=== PATIENT | female | born 1965 | race Caucasian/White ===

== ENCOUNTER 2025-03-21 17:41 | Inpatient (IN) | payer BC, MEDICARE, MEDICAID, SELFPAY ==
--- NOTE | ~2025-03-21 | US_ITS ---
CLINICAL HISTORY: TIANNA US Renal Comparison: None provided Findings: The right kidney is 10.8 cm in length. The left kidney is 8.2 cm in length. Limited visualization of the left kidney due to overlying bowel gas. No collecting system dilatation of either kidney. Normal color Doppler. Bladder is not visualized. IMPRESSION: 1. Normal kidneys. This document has been electronically signed by: Karan Harrington DO on 03/24/2025 11:09:48
[2025-03-21 19:18] VITALS: BMI 38.4
[2025-03-21 19:19] VITALS: BP 145/68; PULSE 70; RESP 17; TEMP 36.4; O2SAT 97
--- NOTE | 2025-03-21 19:21 | PC.NURSE ---
Patient arrived on the unit 1824 on a CV. Patient's vitals and skin check completed (Noted to have scattered bruises to her body and necroptosis to her right lower leg). She was oriented to the unit, given food to eat. Visible out in the milieu.
[2025-03-21 20:40] VITALS: BP 109/51; PULSE 71; RESP 18; TEMP 36.4; O2SAT 95
[2025-03-21 21:32] LABS: Glucose, Whole Blood 463 mg/dL (60-115)
--- NOTE | 2025-03-22 06:11 | PC.ADMIT ---
Pt is a 59 year old female admitted to the unit at 1825 after being referred from [facility]. Legal status: CV. Pt has a history of bipolar d/o, anxiety d/o and borderline personality disorder.? Substance use: per eval, pt rarely uses alcohol. Denies other substance use. Medical hx: Pt has several medical issues, see record.? Precipitant: Pt intentionally overdosed on her insulin after having an argument with her daughter. Pt otf up 4 different vials of insulin aspart into one syringe, which she then injected into her abdomen. Of note, pt generally uses an insulin pump. Upon arrival to the ED pt was hypoglycemic and started on a D10 drip, as well as received multiple D50 boluses. Pt reported feeling very depressed and wanting to .? Upon arrival to the unit pt was a&o x4, pleasant and cooperative with changeover process. She presented with a depressed mood and congruent affect. Denied SI/HI/AH/VH, thought process logical and organized with no evidence of perceptual disturbance. Pt did not wish to participate in admission process at this time as she wanted to go to bed. Per eval, pt denied sleep or appetite disturbance. She reported being compliant with her medications. Skin check was unremarkable. Pt placed on 15 min safety checks.?
[2025-03-22 08:00] VITALS: BP 147/65; PULSE 72; RESP 18; TEMP 36.1; O2SAT 95
[2025-03-22 08:04] LABS: Glucose, Whole Blood 489 mg/dL (60-115)
[2025-03-22 08:28] VITALS: BP 147/65
[2025-03-22 08:29] VITALS: BP 147/65
[2025-03-22 08:30] VITALS: BP 147/65; PULSE 72
[2025-03-22] MEDS: buPROPion HCl XL 300 MG TAB.ER.24H PO (08:30)
[2025-03-22] MEDS: Insulin Glargine,Hum.rec.anlog 100 UNIT/ML 10 ML VIAL 20 UNIT SUBCUT (08:33)
--- NOTE | 2025-03-22 09:19 | P.CONHOSP_ITS ---
History of Present Illness Data of Consult Service Date: 03/22/25 Primary Care Provider: Ruth Anders MD HPI 59 year old women with hx of HLD, DM, hypothyroidism, CAD admittied to adult [facility] for Depression. Patient was transferred from an outside facility. She was noted to have a mildly elevated potassium and Creatitine with unknown baseline. At this time her labs are WNL and vital signs are stable. She has no acute medical complaints. Review of Systems 2 Review of Systems: Denies any recent fever chills or decrease in appetite respiratory denies any shortness of breath or cough cardiovascular denied chest pain gastrointestinal denies any dysphagia abdominal pain nausea vomiting or diarrhea genitourinary denies any dysuria frequency or hematuria musculoskeletal denies any joint pain or swelling neuropsych denies any weakness or seizures all other systems reviewed are negative [facility] Medical History (Updated 03/22/25 @ 09:44 by Collins James MD) Rotator cuff arthropathy of right shoulder Vitamin D deficiency Retinopathy due to secondary diabetes mellitus, without macular edema, with mild nonproliferative retinopathy Chronic kidney disease, stage 3a Spinal stenosis Presence of stent in anterior descending branch of left coronary artery Parkinson disease Obstructive sleep apnea Irritable bowel syndrome Hypothyroid HTN (hypertension) Heart murmur Graves' disease GERD (gastroesophageal reflux disease) Gastroparesis due to DM Fibromyalgia, primary Insulin dependent type 1 diabetes mellitus Necrobiosis lipoidica diabeticorum Coronary artery disease Obesity Cataracts, bilateral Surgical History (Updated 03/22/25 @ 04:06 by Jenny Smith RN) History of carpal tunnel surgery Hx of tubal ligation Hx of cholecystectomy Social History Household Members: Children Household Members Other:: lives with son Housing: Unknown / Unable to assess Do you presently have visiting nurse or other home services: No Patient Tobacco Use Status: Former Tobacco user Tobacco use type: Cigarette Years Smoked: 27 Smoked in Last 30 Days: No e-Cigarette/Vaping Use: Never Used Patient Interested in Nicotine Replacement: No (n/a) Patient Given Instructions on How to Stop Smoking: No (n/a) Second Hand Smoke Exposure: No Do you feel safe in your current relationship?: No Current Relationship Spiritual Healthcare Practices: unknown at this time [employer] Healthcare Practices: unknown at this time Cultural Healthcare Practices: unknown at this time Advance Directives: No Advance Directives Information Provided: No Recently lost weight without trying: No Nutrition Risks: No Nutritional Risk Patient : No : No Poor oral hygiene: No Meds Allergies Allergy/AdvReac Type Severity Reaction Status Date / Time aripiprazole Allergy Unknown Verified 03/21/25 18:15 bacitracin Allergy Hives Verified 03/21/25 18:15 citalopram Allergy Unknown Verified 03/21/25 18:15 codeine Allergy Itching Verified 03/21/25 18:15 duloxetine Allergy Itching Verified 03/21/25 18:15 lithium Allergy Shakiness Verified 03/21/25 18:15 morphine Allergy Itching Verified 03/21/25 18:15 naltrexone Allergy Confusion Verified 03/21/25 18:15 neomycin Allergy Rash Verified 03/21/25 18:15 oxycodone (From Percocet) Allergy Itching Verified 03/21/25 18:15 perphenazine Allergy Unknown Verified 03/21/25 18:15 polymyxin B Allergy Hives Verified 03/21/25 18:15 quetiapine Allergy Unknown Verified 03/21/25 18:15 risperidone Allergy Unknown Verified 03/21/25 18:15 venlafaxine Allergy Shakiness Verified 03/21/25 18:15 Active Medications: Current Medications Acetaminophen (Acetaminophen 325 Mg Tablet) 650 mg PO Q6H PRN PRN Reason: Pain (Pain Scale 1-10) Last Admin: 03/21/25 21:36 Dose: 650 mg Al Hydroxide/Mg Hydroxide (Magnesium Hydrox/Alum Hydrox 30 Ml Oral.Susp) 30 ml PO Q6H PRN PRN Reason: Heartburn/Nausea Atorvastatin Calcium (Atorvastatin Calcium 80 Mg Tablet) 80 mg PO BEDTIME [facility] Last Admin: 03/21/25 21:32 Dose: 80 mg Bupropion HCl (Bupropion Hcl Xl 300 Mg Tab.Er.24h) 300 mg PO DAILY [facility] Last Admin: 03/22/25 08:30 Dose: 300 mg Carvedilol (Carvedilol 12.5 Mg Tablet) 12.5 mg PO BIDWM [facility]; Protocol Last Admin: 03/22/25 08:30 Dose: 12.5 mg Dextrose (Dextrose 50 % 25 Gm/50 Ml Syringe) 25 gm IVPUSH Q15M PRN; Protocol PRN Reason: per Hypoglycemia Standing Ord. Diazepam (Diazepam 5 Mg Tablet) 5 mg PO DAILY@1800 PRN PRN Reason: mod to severe Anxiety Escitalopram Oxalate (Escitalopram Oxalate 5 Mg Tablet) 15 mg PO DAILY [facility] Last Admin: 03/22/25 08:30 Dose: 15 mg Furosemide (Furosemide 40 Mg Tablet) 40 mg PO BID [facility]; Protocol Last Admin: 03/22/25 08:30 Dose: 40 mg Gabapentin (Gabapentin 300 Mg Capsule) 300 mg PO TID [facility] Last Admin: 03/22/25 08:29 Dose: 300 mg Glucose (Glucose Gel 15 Gm Gel..Gram.) 15 gm PO Q15M PRN; Protocol PRN Reason: per Hypoglycemia Standing Ord. Hydroxyzine HCl (Hydroxyzine Hcl 25 Mg Tablet) 25 mg PO Q6H PRN PRN Reason: mild anxiety Last Admin: 03/21/25 21:32 Dose: 25 mg Insulin Glargine (Insulin Glargine,Hum.Rec.Anlog 100 Unit/Ml 10 Ml Vial) 20 unit SUBCUT DAILY [facility] Last Admin: 03/22/25 08:33 Dose: 20 unit Insulin Human Lispro (Insulin Lispro 100 Unit/Ml 3 Ml Vial) 0 unit SUBCUT QIDACHS [facility]; Protocol Last Admin: 03/22/25 08:12 Dose: 10 unit Insulin Human Lispro (Insulin Lispro 100 Unit/Ml 3 Ml Vial) 5 unit SUBCUT TIDWM [facility] Last Admin: 03/22/25 08:12 Dose: 5 unit Isosorbide Mononitrate (Isosorbide Mononitrate 30 Mg Tab.Er.24h) 30 mg PO DAILY [facility]; Protocol Last Admin: 03/22/25 08:28 Dose: 30 mg Lamotrigine (Lamotrigine 25 Mg Tablet) 25 mg PO BEDTIME [facility] Last Admin: 03/21/25 21:38 Dose: Not Given Lamotrigine (Lamotrigine 100 Mg Tablet) 100 mg PO BID [facility] Last Admin: 03/22/25 08:29 Dose: 100 mg Levothyroxine Sodium (Levothyroxine Sodium 125 Mcg Tablet) 125 mcg PO DAILY@0600 [facility] Last Admin: 03/22/25 06:38 Dose: 125 mcg Magnesium Hydroxide (Milk Of Magnesia 30 Ml Oral.Susp) 30 ml PO DAILY PRN PRN Reason: Constipation Nicotine (Nicotine 21 Mg Patch.Td24) 21 mg TRANSDERMA DAILY PRN PRN Reason: smoking cessation Nicotine Polacrilex (Nicotine Polacrilex 2 Mg Gum) 4 mg BUCCAL Q2H PRN PRN Reason: Nicotine Cravings Olanzapine (Olanzapine 5 Mg Tablet) 5 mg PO TID PRN PRN Reason: agitation Omeprazole (Omeprazole 40 Mg Capsule.) 40 mg PO BID@0630,1630 [facility] Last Admin: 03/22/25 07:11 Dose: 40 mg Trazodone HCl (Trazodone Hcl 50 Mg Tablet) 50 mg PO BEDTIME MRX1 PRN PRN Reason: Insomnia Valsartan (Valsartan 160 Mg Tablet) 160 mg PO DAILY [facility] Last Admin: 03/22/25 08:29 Dose: 160 mg Home Medications ?Medication ?Instructions ?Recorded ?Confirmed ?Last Taken ?Type atorvastatin 80 mg tablet 80 mg PO BEDTIME 03/21/25 Unknown History bupropion HCl 300 mg 24 hr tablet, 300 mg PO DAILY 04/0503/21/25 Unknown History extended release carvedilol 12.5 mg tablet 12.5 mg PO BIDWMEAL 03/21/25 03/21/25 Unknown History diazepam 5 mg tablet 5 mg PO 1800 PRN Anxiety 04/0503/21/25 Unknown History escitalopram oxalate 10 mg tablet 15 mg PO DAILY 03/2103/21/25 Unknown History furosemide 40 mg tablet 40 mg PO BID 03/21/25 Unknown History gabapentin 300 mg capsule 300 mg PO TID 03/21/2503/21 Unknown History insulin aspart U-100 100 unit/mL 03/21/25 Unknown Hi story subcutaneous solution (Novolog U-100 Insulin aspart) irbesartan 300 mg tablet 300 mg PO DAILY 03/21/2504/05 Unknown History isosorbide mononitrate 30 mg 30 mg PO DAILY 03/21/25 1 Unknown History tablet,extended release 24 hr lamotrigine 100 mg tablet 100 mg PO BID 03/21/2503/21 Unknown History lamotrigine 25 mg tablet 25 mg PO BEDTIME 03/21/25 Unknown History levothyroxine 125 mcg tablet 125 mcg PO DAILY 03/21/25 03/21/25 Unknown History nitroglycerin 0.4 mg sublingual 0.4 mg sublingual PRN angina/chest 03/21/25 Unknown History tablet pain omeprazole 40 mg capsule,delayed 40 mg PO BID 03/21/25 03/21/25 Unknown History release Physical Exam 2 Vital Signs and Narrative: Vital Signs: Last Vital Signs Temp 96.9 F 03/22/25 08:00 Pulse 72 03/22/25 08:30 Resp 18 03/22/25 08:00 BP 147/65 H 03/22/25 08:30 Pulse Ox 95 03/22/25 08:00 O2 Del Method Room Air 03/22/25 08:00 BMI result Body Mass Index 38.4 Appearing in no acute distress head is normocephalic atraumatic eyes pupils are PERRLA sclera is anicteric mouth throat mucous membranes are intact and moist neck is supple no lymphadenopathy, no JVD noted lung sounds are clear to auscultation heart regular rate rhythm, clear S1, S2 positive bowel sounds, abdomen is soft, nontender neuro patient is alert x3, no focal deficits Cranial nerves 2-12 are grossly intact without focal deficits Results Labs 03/22/25 08:17 Labs: Laboratory Results - last 24 hr 03/21/25 03/22/25 21:20 07:47 POC Glucose 463 H* 489 H* Assessment and Plan (1) Bipolar 2 disorder: Status: Acute Plan 59 year old women admitted by psychiatric team for depression Mental health management as per psychiatric team Hypokalemia potassium 5.3 Lokelma TIANNA versus CKD, unspecified Creatinine 1.97 Unknown baseline Consult nephrology for further management Hypothyroidism Continue levothyroxine Diabetes mellitus type 1 Hemoglobin A1c 7.1 Continue insulin sliding scale, Lantus and mealtime insulin History of coronary artery disease/hypertension Continue statin and beta-elena Hold furosemide for now secondary to elevated creatinine IBS/gastroparesis chronic diarrhea and constipation
[2025-03-22 09:31] LABS: Alanine Aminotransferase 26 U/L (0-31); Albumin Level 3.9 g/dL (3.5-5.0); Alkaline Phosphatase 105 U/L (39-117); Anion Gap 15 (12-20); Aspartate Amino Transferase 31 U/L (5-31); Blood Urea Nitrogen 44 mg/dL (9-16); Calcium 9.1 mg/dL (8.4-10.2); Carbon Dioxide 27 mmol/L (22-29); Chloride 96 mmol/L (96-108); Cholesterol 142 mg/dL (<200); Creatinine Clr Calc Pharmacy 32.6; Estimated Glomerular Filt Rate 26; HDL Cholesterol 40 mg/dL (>40); Potassium 5.3 mmol/L (3.3-5.1); Sodium 133 mmol/L (135-145); Total Protein 6.0 g/dL (6.5-8.0); Triglycerides 89 mg/dL (<150)
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
[2025-03-22 09:50] LABS: Hemoglobin A1C 143.8953 umol/L; Total Hemoglobin (HGBA1C) 2667.0400 umol/L
[2025-03-22 11:48] LABS: Glucose, Whole Blood 376 mg/dL (60-115)
[2025-03-22 16:56] LABS: Glucose, Whole Blood 170 mg/dL (60-115)
[2025-03-22 17:18] VITALS: BP 123/67; PULSE 64
[2025-03-22 19:30] VITALS: BP 125/60; PULSE 63; RESP 16; TEMP 36.2; O2SAT 99
[2025-03-22 20:54] LABS: Glucose, Whole Blood 222 mg/dL (60-115)
[2025-03-23 07:57] LABS: Glucose, Whole Blood 351 mg/dL (60-115)
[2025-03-23 08:00] VITALS: BP 142/63; PULSE 72; RESP 16; TEMP 36.2; O2SAT 94
[2025-03-23] MEDS: Insulin Glargine,Hum.rec.anlog 100 UNIT/ML 10 ML VIAL 20 UNIT SUBCUT (08:09)
[2025-03-23 08:14] VITALS: BP 142/63
[2025-03-23] MEDS: buPROPion HCl XL 300 MG TAB.ER.24H PO (08:14)
[2025-03-23 08:15] VITALS: BP 142/63; PULSE 72
[2025-03-23 09:04] LABS: Anion Gap 13 (12-20); Blood Urea Nitrogen 46 mg/dL (9-16); Calcium 9.4 mg/dL (8.4-10.2); Carbon Dioxide 29 mmol/L (22-29); Chloride 97 mmol/L (96-108); Creatinine Clr Calc Pharmacy 32.0; Estimated Glomerular Filt Rate 26; Potassium 5.3 mmol/L (3.3-5.1); Sodium 134 mmol/L (135-145)
[2025-03-23 10:01] LABS: Glucose, Whole Blood 356 mg/dL (60-115)
--- NOTE | 2025-03-23 10:08 | HO.PSYCHPN ---
Subjective Subjective Date of Service: 03/23/25 Reason For Visit: Suicide attempt Subjective Notes: Conditional Voluntary and 3 Day Interim History: Patient was seen and discussed in rounds today. Records and plans were reviewed. She was seen by the hospitalist yesterday and because of elevated potassium was given a 1 time dose of sodium zirconium. Also her POC is have been elevated and I put in a hospitalist consult for management. Some corrections with her dose of Lasix to 40 mg once a day were made. She is visible, social and had several questions about her medications which we discussed. She also has put in a 3 day notice. Review of Systems Review of Systems Yes all other systems are reviewed and are negative Mental Status Exam Mental Status Exam Narrative: In today's visit she is alert, oriented and pleasant. Normal speech. Good eye contact. Affect is appropriate and varied. No acute signs of psychosis. No AVH. No cognitive deficits on observation. No SI. Judgment intact Diagnostics Vital Signs (24Hr): Vital Signs - 24 hr 03/22/25 17:18 03/22/25 19:30 03/23/25 08:00 Temperature 97.2 F 97.2 F Pulse Rate 64 63 72 Respiratory Rate 16 16 Blood Pressure 123/67 125/60 142/63 H Pulse Oximetry 99 94 Oxygen Delivery Method Room Air Room Air 03/23/25 08:14 03/23/25 08:15 03/23/25 08:15 Temperature Pulse Rate Respiratory Rate Blood Pressure 142/63 H 142/63 H 142/63 H Pulse Oximetry Oxygen Delivery Method 03/23/25 08:15 Temperature Pulse Rate 72 Respiratory Rate Blood Pressure 142/63 H Pulse Oximetry Oxygen Delivery Method BMI result Body Mass Index 38.4 Labs 03/23/25 08:35 Labs: Laboratory Results - last 48 hr 03/21/25 03/22/25 03/22/25 21:20 07:47 08:17 Sodium 133 L Potassium 5.3 H Chloride 96 Carbon Dioxide 27 Anion Gap 15 BUN 44 H Creatinine 1.97 H Estim Creat Clear Calc 32.6 Estimated GFR 26 POC Glucose 463 H* 489 H* Random Glucose 583 H* Estimat Average Glucose 157 Hemoglobin A1c % 7.1 H Calcium 9.1 Total Bilirubin 0.5 AST 31 ALT 26 Alkaline Phosphatase 105 Total Protein 6.0 L Albumin 3.9 Triglycerides 89 Cholesterol 142 LDL Cholesterol, Calc 85 HDL Cholesterol 40 L TSH 0.76 10/11/25 10/11/25 10/11/25 11:44 16:50 20:47 Sodium Potassium Chloride Carbon Dioxide Anion Gap BUN Creatinine Estim Creat Clear Calc Estimated GFR POC Glucose 376 H* 170 H 222 H Random Glucose Estimat Average Glucose Hemoglobin A1c % Calcium Total Bilirubin AST ALT Alkaline Phosphatase Total Protein Albumin Triglycerides Cholesterol LDL Cholesterol, Calc HDL Cholesterol TSH 03/23/25 03/23/25 03/23/25 07:41 08:35 09:56 Sodium 134 L Potassium 5.3 H Chloride 97 Carbon Dioxide 29 Anion Gap 13 BUN 46 H Creatinine 2.01 H Estim Creat Clear Calc 32.0 Estimated GFR 26 POC Glucose 351 H* 356 H* Random Glucose 408 H* Estimat Average Glucose Hemoglobin A1c % Calcium 9.4 Total Bilirubin AST ALT Alkaline Phosphatase Total Protein Albumin Triglycerides Cholesterol LDL Cholesterol, Calc HDL Cholesterol TSH Medications Medications Current Medications Acetaminophen (Acetaminophen 325 Mg Tablet) 650 mg PO Q6H PRN PRN Reason: Pain (Pain Scale 1-10) Last Admin: 03/21/25 21:36 Dose: 650 mg Al Hydroxide/Mg Hydroxide (Magnesium Hydrox/Alum Hydrox 30 Ml Oral.Susp) 30 ml PO Q6H PRN PRN Reason: Heartburn/Nausea Atorvastatin Calcium (Atorvastatin Calcium 80 Mg Tablet) 80 mg PO BEDTIME ALISE Last Admin: 03/22/25 20:59 Dose: 80 mg Bupropion HCl (Bupropion Hcl Xl 300 Mg Tab.Er.24h) 300 mg PO DAILY ALISE Last Admin: 03/23/25 08:14 Dose: 300 mg Carvedilol (Carvedilol 12.5 Mg Tablet) 12.5 mg PO BIDWM ALISE; Protocol Last Admin: 03/23/25 08:15 Dose: 12.5 mg Dextrose (Dextrose 50 % 25 Gm/50 Ml Syringe) 25 gm IVPUSH Q15M PRN; Protocol PRN Reason: per Hypoglycemia Standing Ord. Diazepam (Diazepam 5 Mg Tablet) 10 mg PO DAILY@1800 PRN PRN Reason: mod to severe Anxiety Diazepam (Diazepam 5 Mg Tablet) 5 mg PO DAILY PRN PRN Reason: Anxiety Last Admin: 03/23/25 08:52 Dose: 5 mg Escitalopram Oxalate (Escitalopram Oxalate 5 Mg Tablet) 15 mg PO DAILY ALISE Last Admin: 03/23/25 08:14 Dose: 15 mg Furosemide (Furosemide 40 Mg Tablet) 40 mg PO DAILY ALISE; Protocol Last Admin: 03/23/25 08:15 Dose: 40 mg Gabapentin (Gabapentin 300 Mg Capsule) 300 mg PO BID [facility] [place] Last Admin: 03/23/25 08:14 Dose: 300 mg Glucose (Glucose Gel 15 Gm Gel..Gram.) 15 gm PO Q15M PRN; Protocol PRN Reason: per Hypoglycemia Standing Ord. Hydroxyzine HCl (Hydroxyzine Hcl 25 Mg Tablet) 25 mg PO Q6H PRN PRN Reason: mild anxiety Last Admin: 03/22/25 18:58 Dose: 25 mg Insulin Glargine (Insulin Glargine,Hum.Rec.Anlog 100 Unit/Ml 10 Ml Vial) 20 unit SUBCUT DAILY [facility] [place] Last Admin: 03/23/25 08:09 Dose: 20 unit Insulin Human Lispro (Insulin Lispro 100 Unit/Ml 3 Ml Vial) 0 unit SUBCUT QIDACHS [facility] [place]; Protocol Last Admin: 03/23/25 08:09 Dose: 10 unit Insulin Human Lispro (Insulin Lispro 100 Unit/Ml 3 Ml Vial) 5 unit SUBCUT TIDWM [facility] [place] Last Admin: 03/23/25 08:12 Dose: 5 unit Isosorbide Mononitrate (Isosorbide Mononitrate 30 Mg Tab.Er.24h) 30 mg PO DAILY [facility] [place]; Protocol Last Admin: 03/23/25 08:14 Dose: 30 mg Lamotrigine (Lamotrigine 100 Mg Tablet) 100 mg PO BID [facility] [place] Last Admin: 03/23/25 08:14 Dose: 100 mg Lamotrigine (Lamotrigine 25 Mg Tablet) 25 mg PO DAILY [facility] [place] Last Admin: 03/23/25 08:15 Dose: 25 mg Levothyroxine Sodium (Levothyroxine Sodium 125 Mcg Tablet) 125 mcg PO DAILY@0600 [facility] [place] Last Admin: 03/23/25 06:05 Dose: 125 mcg Magnesium Hydroxide (Milk Of Magnesia 30 Ml Oral.Susp) 30 ml PO DAILY PRN PRN Reason: Constipation Nicotine (Nicotine 21 Mg Patch.Td24) 21 mg TRANSDERMA DAILY PRN PRN Reason: smoking cessation Nicotine Polacrilex (Nicotine Polacrilex 2 Mg Gum) 4 mg BUCCAL Q2H PRN PRN Reason: Nicotine Cravings Olanzapine (Olanzapine 5 Mg Tablet) 5 mg PO TID PRN PRN Reason: agitation Omeprazole (Omeprazole 40 Mg Capsule.) 40 mg PO BID@0630,1630 [facility] [place] Last Admin: 03/23/25 06:42 Dose: 40 mg Trazodone HCl (Trazodone Hcl 50 Mg Tablet) 50 mg PO BEDTIME MRX1 PRN PRN Reason: Insomnia Valsartan (Valsartan 160 Mg Tablet) 160 mg PO DAILY [facility] [place] Last Admin: 03/23/25 08:15 Dose: 160 mg Allergies Allergies Allergy/AdvReac Type Severity Reaction Status Date / Time aripiprazole Allergy Unknown Verified 03/21/25 18:15 bacitracin Allergy Hives Verified 03/21/25 18:15 citalopram Allergy Unknown Verified 03/21/25 18:15 codeine Allergy Itching Verified 03/21/25 18:15 duloxetine Allergy Itching Verified 03/21/25 18:15 lithium Allergy Shakiness Verified 03/21/25 18:15 morphine Allergy Itching Verified 03/21/25 18:15 naltrexone Allergy Confusion Verified 03/21/25 18:15 neomycin Allergy Rash Verified 03/21/25 18:15 oxycodone (From Percocet) Allergy Itching Verified 03/21/25 18:15 perphenazine Allergy Unknown Verified 03/21/25 18:15 polymyxin B Allergy Hives Verified 03/21/25 18:15 quetiapine Allergy Unknown Verified 03/21/25 18:15 risperidone Allergy Unknown Verified 03/21/25 18:15 venlafaxine Allergy Shakiness Verified 03/21/25 18:15 Assessment & Plan Assessment & Plan (1) Bipolar 2 disorder: Status: Acute Code(s): F31.81 - Bipolar II disorder Plan 59 year old women admitted by psychiatric team for depression Mental health management as per psychiatric team Hypokalemia potassium 5.3 Lokelma TIANNA versus CKD, unspecified Creatinine 1.97 Unknown baseline Consult nephrology for further management Hypothyroidism Continue levothyroxine Diabetes mellitus type 1 Hemoglobin A1c 7.1 Continue insulin sliding scale, Lantus and mealtime insulin History of coronary artery disease/hypertension Continue statin and beta-elena Hold furosemide for now secondary to elevated creatinine IBS/gastroparesis chronic diarrhea and constipation 03/23: Continue current regimen and plans Patient educated on: medication risk/benefits Reason for continued inpatient stay Substantial Risk for: harm to self and med/psych decompensation Time Spent With Patient Time: Total time managing care of this patient today ____ minutes.
--- NOTE | 2025-03-23 10:18 | PM.EVENT ---
Event Note Date of Service: 03/23/25 Event Note: 59 year old women admitted to [facility] for mental health care DMI with hyperglycemia Lantus increased to 30 units daily Mealtime insulin increased Encourage low sugar, low carb diet CKD, unspecified Elevation in creat noted today to 2.01 Discussed with Nephrology, stop valsartan will also hold lasix for now recheck BMP in am Time Spent With Patient Time: Total time managing care of this patient today ____ minutes.
[2025-03-23] MEDS: Insulin Glargine,Hum.rec.anlog 100 UNIT/ML 10 ML VIAL 10 UNIT SUBCUT (10:27)
--- NOTE | 2025-03-23 10:29 | PC.NURSE ---
Later this morning, pt c/o feeling that her sugar was still high. Stated My mouth feels dry, I think I need more insulin . An additional random POC was completed, pt results were 356. Psychiatrist and Hospitalist Diana Sin notified, who ordered an additional 10 units of Lantus to be given. Hospitalist also made changes to patient's medications (see note).
[2025-03-23 11:47] LABS: Glucose, Whole Blood 192 mg/dL (60-115)
[2025-03-23 16:32] LABS: Glucose, Whole Blood 165 mg/dL (60-115)
[2025-03-23 17:06] VITALS: BP 136/63; PULSE 63
[2025-03-23 20:00] VITALS: BP 131/61; PULSE 67; RESP 18; TEMP 36.4; O2SAT 96
[2025-03-23 20:22] LABS: Glucose, Whole Blood 39 mg/dL (60-115)
[2025-03-23 21:09] LABS: Glucose, Whole Blood 103 mg/dL (60-115)
[2025-03-24 08:00] VITALS: BP 159/68; PULSE 63; RESP 20; TEMP 36.6; O2SAT 98
--- NOTE | 2025-03-24 08:05 | HO.PSYCHPN ---
Subjective Subjective Date of Service: 03/24/25 Reason For Visit: Suicide attempt Subjective Notes: Conditional Voluntary and 3 Day Interim History: Patient was seen and discussed in rounds today. Records and plans were reviewed. She is doing better and denies any depression or any suicidal ideations. Yesterday her blood sugar went up to high 300s, low 400s and hospitalist increased her insulin orders. Also because of elevated creatinine her Lasix and valsartan were held. She did also put in a 3 day notice. Her blood sugars were good yesterday however in the evening it was 39. Labs had been ordered again. Review of Systems Review of Systems Yes all other systems are reviewed and are negative Mental Status Exam Mental Status Exam Narrative: In today's visit she is alert, oriented and pleasant. Normal speech. Good eye contact. Affect is appropriate and varied. No acute signs of psychosis. No AVH. No cognitive deficits on observation. No SI. Judgment intact Diagnostics Vital Signs (24Hr): Vital Signs - 24 hr 03/23/25 08:14 03/23/25 08:15 03/23/25 08:15 Temperature Pulse Rate Respiratory Rate Blood Pressure 142/63 H 142/63 H 142/63 H Pulse Oximetry Oxygen Delivery Method 03/23/25 08:15 03/23/25 17:06 03/23/25 20:00 Temperature 97.6 F Pulse Rate 72 63 67 Respiratory Rate 18 Blood Pressure 142/63 H 136/63 131/61 Pulse Oximetry 96 Oxygen Delivery Method Room Air BMI result Body Mass Index 38.4 Labs 03/23/25 08:35 Labs: Laboratory Results - last 48 hr 03/22/25 03/22/25 03/22/25 08:17 11:44 16:50 Sodium 133 L Potassium 5.3 H Chloride 96 Carbon Dioxide 27 Anion Gap 15 BUN 44 H Creatinine 1.97 H Estim Creat Clear Calc 32.6 Estimated GFR 26 POC Glucose 376 H* 170 H Random Glucose 583 H* Estimat Average Glucose 157 Hemoglobin A1c % 7.1 H Calcium 9.1 Total Bilirubin 0.5 AST 31 ALT 26 Alkaline Phosphatase 105 Total Protein 6.0 L Albumin 3.9 Triglycerides 89 Cholesterol 142 LDL Cholesterol, Calc 85 HDL Cholesterol 40 L TSH 0.76 03/22/25 03/23/25 03/23/25 20:47 07:41 08:35 Sodium 134 L Potassium 5.3 H Chloride 97 Carbon Dioxide 29 Anion Gap 13 BUN 46 H Creatinine 2.01 H Estim Creat Clear Calc 32.0 Estimated GFR 26 POC Glucose 222 H 351 H* Random Glucose 408 H* Estimat Average Glucose Hemoglobin A1c % Calcium 9.4 Total Bilirubin AST ALT Alkaline Phosphatase Total Protein Albumin Triglycerides Cholesterol LDL Cholesterol, Calc HDL Cholesterol TSH 03/23/25 03/23/25 03/23/25 09:56 11:43 16:27 Sodium Potassium Chloride Carbon Dioxide Anion Gap BUN Creatinine Estim Creat Clear Calc Estimated GFR POC Glucose 356 H* 192 H 165 H Random Glucose Estimat Average Glucose Hemoglobin A1c % Calcium Total Bilirubin AST ALT Alkaline Phosphatase Total Protein Albumin Triglycerides Cholesterol LDL Cholesterol, Calc HDL Cholesterol TSH 03/23/25 03/23/25 20:14 20:59 Sodium Potassium Chloride Carbon Dioxide Anion Gap BUN Creatinine Estim Creat Clear Calc Estimated GFR POC Glucose 39 L* 103 Random Glucose Estimat Average Glucose Hemoglobin A1c % Calcium Total Bilirubin AST ALT Alkaline Phosphatase Total Protein Albumin Triglycerides Cholesterol LDL Cholesterol, Calc HDL Cholesterol TSH Medications Medications Current Medications Acetaminophen (Acetaminophen 325 Mg Tablet) 650 mg PO Q6H PRN PRN Reason: Pain (Pain Scale 1-10) Last Admin: 03/21/25 21:36 Dose: 650 mg Al Hydroxide/Mg Hydroxide (Magnesium Hydrox/Alum Hydrox 30 Ml Oral.Susp) 30 ml PO Q6H PRN PRN Reason: Heartburn/Nausea Atorvastatin Calcium (Atorvastatin Calcium 80 Mg Tablet) 80 mg PO BEDTIME [facility] [place] Last Admin: 03/23/25 21:10 Dose: 80 mg Bupropion HCl (Bupropion Hcl Xl 300 Mg Tab.Er.24h) 300 mg PO DAILY [facility] [place] Last Admin: 03/23/25 08:14 Dose: 300 mg Carvedilol (Carvedilol 12.5 Mg Tablet) 12.5 mg PO BIDWM ALISE; Protocol Last Admin: 03/23/25 17:11 Dose: 12.5 mg Dextrose (Dextrose 50 % 25 Gm/50 Ml Syringe) 25 gm IVPUSH Q15M PRN; Protocol PRN Reason: per Hypoglycemia Standing Ord. Diazepam (Diazepam 5 Mg Tablet) 10 mg PO DAILY@1800 PRN PRN Reason: mod to severe Anxiety Last Admin: 03/23/25 21:10 Dose: 10 mg Diazepam (Diazepam 5 Mg Tablet) 5 mg PO DAILY PRN PRN Reason: Anxiety Last Admin: 03/23/25 08:52 Dose: 5 mg Escitalopram Oxalate (Escitalopram Oxalate 5 Mg Tablet) 15 mg PO DAILY [facility] [place] Last Admin: 03/23/25 08:14 Dose: 15 mg Furosemide (Furosemide 40 Mg Tablet) 40 mg PO DAILY [facility] [place]; Protocol On Hold: 03/23/25 10:18 Last Admin: 03/23/25 08:15 Dose: 40 mg Gabapentin (Gabapentin 300 Mg Capsule) 300 mg PO BID [facility] [place] Last Admin: 03/23/25 21:10 Dose: 300 mg Glucose (Glucose Gel 15 Gm Gel..Gram.) 15 gm PO Q15M PRN; Protocol PRN Reason: per Hypoglycemia Standing Ord. Hydroxyzine HCl (Hydroxyzine Hcl 25 Mg Tablet) 25 mg PO Q6H PRN PRN Reason: mild anxiety Last Admin: 03/22/25 18:58 Dose: 25 mg Insulin Glargine (Insulin Glargine,Hum.Rec.Anlog 100 Unit/Ml 10 Ml Vial) 30 unit SUBCUT DAILY [facility] [place] Insulin Human Lispro (Insulin Lispro 100 Unit/Ml 3 Ml Vial) 0 unit SUBCUT QIDACHS [facility] [place]; Protocol Last Admin: 03/23/25 21:25 Dose: Not Given Insulin Human Lispro (Insulin Lispro 100 Unit/Ml 3 Ml Vial) 5 unit SUBCUT TIDWM [facility] [place] Isosorbide Mononitrate (Isosorbide Mononitrate 30 Mg Tab.Er.24h) 30 mg PO DAILY [facility] [place]; Protocol Last Admin: 03/23/25 08:14 Dose: 30 mg Lamotrigine (Lamotrigine 100 Mg Tablet) 100 mg PO BID [facility] [place] Last Admin: 03/23/25 21:10 Dose: 100 mg Lamotrigine (Lamotrigine 25 Mg Tablet) 25 mg PO DAILY [facility] [place] Last Admin: 03/23/25 08:15 Dose: 25 mg Levothyroxine Sodium (Levothyroxine Sodium 125 Mcg Tablet) 125 mcg PO DAILY@0600 [facility] [place] Last Admin: 03/24/25 06:00 Dose: 125 mcg Magnesium Hydroxide (Milk Of Magnesia 30 Ml Oral.Susp) 30 ml PO DAILY PRN PRN Reason: Constipation Nicotine (Nicotine 21 Mg Patch.Td24) 21 mg TRANSDERMA DAILY PRN PRN Reason: smoking cessation Nicotine Polacrilex (Nicotine Polacrilex 2 Mg Gum) 4 mg BUCCAL Q2H PRN PRN Reason: Nicotine Cravings Olanzapine (Olanzapine 5 Mg Tablet) 5 mg PO TID PRN PRN Reason: agitation Omeprazole (Omeprazole 40 Mg Capsule.Dr) 40 mg PO BID@0630,1630 [facility] Last Admin: 03/24/25 07:05 Dose: 40 mg Trazodone HCl (Trazodone Hcl 50 Mg Tablet) 50 mg PO BEDTIME MRX1 PRN PRN Reason: Insomnia Allergies Allergies Allergy/AdvReac Type Severity Reaction Status Date / Time aripiprazole Allergy Unknown Verified 03/21/25 18:15 bacitracin Allergy Hives Verified 03/21/25 18:15 citalopram Allergy Unknown Verified 03/21/25 18:15 codeine Allergy Itching Verified 03/21/25 18:15 duloxetine Allergy Itching Verified 03/21/25 18:15 lithium Allergy Shakiness Verified 03/21/25 18:15 morphine Allergy Itching Verified 03/21/25 18:15 naltrexone Allergy Confusion Verified 03/21/25 18:15 neomycin Allergy Rash Verified 03/21/25 18:15 oxycodone (From Percocet) Allergy Itching Verified 03/21/25 18:15 perphenazine Allergy Unknown Verified 03/21/25 18:15 polymyxin B Allergy Hives Verified 03/21/25 18:15 quetiapine Allergy Unknown Verified 03/21/25 18:15 risperidone Allergy Unknown Verified 03/21/25 18:15 venlafaxine Allergy Shakiness Verified 03/21/25 18:15 Assessment & Plan Assessment & Plan (1) Bipolar 2 disorder: Status: Acute Code(s): F31.81 - Bipolar II disorder Plan 59 year old women admitted by psychiatric team for depression Mental health management as per psychiatric team Hypokalemia potassium 5.3 Lokelma TIANNA versus CKD, unspecified Creatinine 1.97 Unknown baseline Consult nephrology for further management Hypothyroidism Continue levothyroxine Diabetes mellitus type 1 Hemoglobin A1c 7.1 Continue insulin sliding scale, Lantus and mealtime insulin History of coronary artery disease/hypertension Continue statin and beta-elena Hold furosemide for now secondary to elevated creatinine IBS/gastroparesis chronic diarrhea and constipation 03/23: Continue current regimen and plans 03/24: Continue current regimen and plans. Review new labs when available Reason for continued inpatient stay Substantial Risk for: med/psych decompensation Time Spent With Patient Time: Total time managing care of this patient today ____ minutes.
[2025-03-24 08:16] LABS: Anion Gap 13 (12-20); Blood Urea Nitrogen 45 mg/dL (9-16); Calcium 9.1 mg/dL (8.4-10.2); Carbon Dioxide 29 mmol/L (22-29); Chloride 99 mmol/L (96-108); Creatinine Clr Calc Pharmacy 30.5; Estimated Glomerular Filt Rate 24; Potassium 5.3 mmol/L (3.3-5.1); Sodium 136 mmol/L (135-145)
[2025-03-24 08:18] LABS: Glucose, Whole Blood 273 mg/dL (60-115)
[2025-03-24 08:33] VITALS: BP 159/68; PULSE 63
[2025-03-24 08:34] VITALS: BP 159/68
[2025-03-24] MEDS: Insulin Glargine,Hum.rec.anlog 100 UNIT/ML 10 ML VIAL 30 UNIT SUBCUT (08:38)
[2025-03-24] MEDS: buPROPion HCl XL 300 MG TAB.ER.24H PO (08:39)
--- NOTE | 2025-03-24 11:03 | PM.EVENT ---
Event Note Date of Service: 03/24/25 Event Note: 59 year old women admitted to [facility] for mental health care DMI with hyperglycemia overnight with hypoglycemia of 39, 103 this morning Lantus increased to 30 units daily Mealtime insulin increased to 7.5 but due to hypoglycemia will bring back down to 5 units with meals Encourage low sugar, low carb diet CKD, unspecified creat 2.10 today Discussed with Nephrology>hopefully creat is peaking and will improve renal us neg for obstruction valsartan and lasix on hold recheck BMP in am Time Spent With Patient Time: Total time managing care of this patient today ____ minutes.
[2025-03-24 12:04] LABS: Glucose, Whole Blood 83 mg/dL (60-115)
[2025-03-24] MEDS: Milk of Magnesia 30 ML ORAL.SUSP PO (13:35)
[2025-03-24 16:59] LABS: Glucose, Whole Blood 294 mg/dL (60-115)
[2025-03-24 17:32] VITALS: BP 152/67; PULSE 67
[2025-03-24 19:20] VITALS: BP 117/58; PULSE 66; RESP 18; TEMP 36.3; O2SAT 99
[2025-03-24 20:18] LABS: Glucose, Whole Blood 159 mg/dL (60-115)
[2025-03-25 08:03] VITALS: BP 174/67; PULSE 63; RESP 16; TEMP 36.2; O2SAT 100
[2025-03-25 08:06] LABS: Glucose, Whole Blood 189 mg/dL (60-115)
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
[2025-03-25] MEDS: buPROPion HCl XL 300 MG TAB.ER.24H PO (08:51)
[2025-03-25] MEDS: Insulin Glargine,Hum.rec.anlog 100 UNIT/ML 10 ML VIAL 30 UNIT SUBCUT (08:52)
[2025-03-25] MEDS: Milk of Magnesia 30 ML ORAL.SUSP PO (09:00)
[2025-03-25 10:52] LABS: Anion Gap 14 (12-20); Blood Urea Nitrogen 41 mg/dL (9-16); Calcium 9.1 mg/dL (8.4-10.2); Carbon Dioxide 30 mmol/L (22-29); Chloride 99 mmol/L (96-108); Creatinine Clr Calc Pharmacy 33.4; Estimated Glomerular Filt Rate 27; Potassium 5.0 mmol/L (3.3-5.1); Sodium 138 mmol/L (135-145)
--- NOTE | 2025-03-25 10:58 | HO.PM.IMPN ---
Subjective Subjective Date of Service: 03/25/25 Interval History: Patient was seen in follow up for elevated creatinine, Lasix is on hold. Creatinine improved to 1.92. Nephrology consult pending. Per review of outside records patient has a past medical history of anxiety, bipolar disorder, BPD, coronary disease, chronic kidney disease stage IIIB, type 1 diabetes on insulin pump who presented to [facility] after attempted to kill herself by injecting a large amount of insulin. Patient's blood pressure reading is elevated, valsartan DC due to TIANNA. Will start amlodipine. Review of Systems Denies any shortness of breath, chest pain, palpitations, dizziness, lightheadedness, headaches, dysuria, abdominal pain or discomfort, nausea, vomiting or diarrhea. Denies chills, body aches, muscle aches, fatigue or weight loss. Physical Exam Exam: Exam: CONST: Alert and oriented, in NAD. Well nourished HEENT: Normocephalic, atraumatic, MMM, Eyes clear, Neck supple RESP: Lungs clear, RRR even and regular HEART:,RRR, S1, S2. No edema GI:Abdomen Soft NT, ND. + BS times four :Deferred SKIN: Warm dry and intact, no visible lesions or rashes NEURO:CN II-XII Intact bilaterally, Sensation intact. Speech clear PSYCH: Normal affect Vital Signs: Vital Signs: Last Vital Signs Temp 97.1 F 03/25/25 08:03 Pulse 63 03/25/25 08:03 Resp 16 03/25/25 08:03 BP 174/67 H 03/25/25 08:03 Pulse Ox 100 03/25/25 08:03 O2 Del Method Room Air 03/25/25 08:03 BMI result Body Mass Index 38.4 Objective Data Active Medications Acetaminophen (Acetaminophen 325 Mg Tablet) 650 mg PO Q6H PRN PRN Reason: Pain (Pain Scale 1-10) Last Admin: 03/25/25 05:53 Dose: 650 mg Documented By: ESSENCE Al Hydroxide/Mg Hydroxide (Magnesium Hydrox/Alum Hydrox 30 Ml Oral.Susp) 30 ml PO Q6H PRN PRN Reason: Heartburn/Nausea Atorvastatin Calcium (Atorvastatin Calcium 80 Mg Tablet) 80 mg PO BEDTIME [facility] Last Admin: 03/24/25 20:34 Dose: 80 mg Documented By: ESSENCE Bupropion HCl (Bupropion Hcl Xl 300 Mg Tab.Er.24h) 300 mg PO DAILY [facility] Last Admin: 03/25/25 08:51 Dose: 300 mg Documented By: LAURIE Carvedilol (Carvedilol 12.5 Mg Tablet) 12.5 mg PO BIDWM [facility]; Protocol Last Admin: 03/25/25 08:51 Dose: 12.5 mg Documented By: LAURIE Dextrose (Dextrose 50 % 25 Gm/50 Ml Syringe) 25 gm IVPUSH Q15M PRN; Protocol PRN Reason: per Hypoglycemia Standing Ord. Diazepam (Diazepam 5 Mg Tablet) 10 mg PO DAILY@1800 PRN PRN Reason: mod to severe Anxiety Last Admin: 03/23/25 21:10 Dose: 10 mg Documented By: SHAE Diazepam (Diazepam 5 Mg Tablet) 5 mg PO DAILY PRN PRN Reason: Anxiety Last Admin: 03/25/25 08:59 Dose: 5 mg Documented By: LAURIE Escitalopram Oxalate (Escitalopram Oxalate 5 Mg Tablet) 15 mg PO DAILY [facility] Last Admin: 03/25/25 08:51 Dose: 15 mg Documented By: LAURIE Furosemide (Furosemide 40 Mg Tablet) 40 mg PO DAILY [facility]; Protocol On Hold: 03/23/25 10:18 Last Admin: 03/23/25 08:15 Dose: 40 mg Documented By: CARLOS Gabapentin (Gabapentin 300 Mg Capsule) 300 mg PO BID [facility] Last Admin: 03/25/25 08:51 Dose: 300 mg Documented By: LAURIE Glucose (Glucose Gel 15 Gm Gel..Gram.) 15 gm PO Q15M PRN; Protocol PRN Reason: per Hypoglycemia Standing Ord. Hydroxyzine HCl (Hydroxyzine Hcl 25 Mg Tablet) 25 mg PO Q6H PRN PRN Reason: mild anxiety Last Admin: 03/24/25 20:33 Dose: 25 mg Documented By: ESSENCE Insulin Glargine (Insulin Glargine,Hum.Rec.Anlog 100 Unit/Ml 10 Ml Vial) 30 unit SUBCUT DAILY [facility] Last Admin: 03/25/25 08:52 Dose: 30 unit Documented By: LAURIE Insulin Human Lispro (Insulin Lispro 100 Unit/Ml 3 Ml Vial) 0 unit SUBCUT QIDACHS [facility]; Protocol Last Admin: 03/25/25 08:52 Dose: 2 unit Documented By: LAURIE Insulin Human Lispro (Insulin Lispro 100 Unit/Ml 3 Ml Vial) 5 unit SUBCUT TIDWM [facility] Last Admin: 03/25/25 08:52 Dose: 5 unit Documented By: LAURIE Isosorbide Mononitrate (Isosorbide Mononitrate 30 Mg Tab.Er.24h) 30 mg PO DAILY [facility]; Protocol Last Admin: 03/25/25 08:50 Dose: 30 mg Documented By: LAURIE Lamotrigine (Lamotrigine 100 Mg Tablet) 100 mg PO BID [facility] Last Admin: 03/25/25 08:51 Dose: 100 mg Documented By: LAURIE Lamotrigine (Lamotrigine 25 Mg Tablet) 25 mg PO DAILY [facility] Last Admin: 03/25/25 08:51 Dose: 25 mg Documented By: LAURIE Levothyroxine Sodium (Levothyroxine Sodium 125 Mcg Tablet) 125 mcg PO DAILY@0600 [facility] Last Admin: 03/25/25 05:48 Dose: 125 mcg Documented By: ESSENCE Magnesium Hydroxide (Milk Of Magnesia 30 Ml Oral.Susp) 30 ml PO DAILY PRN PRN Reason: Constipation Last Admin: 03/25/25 09:00 Dose: 30 ml Documented By: LAURIE Nicotine (Nicotine 21 Mg Patch.Td24) 21 mg TRANSDERMA DAILY PRN PRN Reason: smoking cessation Nicotine Polacrilex (Nicotine Polacrilex 2 Mg Gum) 4 mg BUCCAL Q2H PRN PRN Reason: Nicotine Cravings Olanzapine (Olanzapine 5 Mg Tablet) 5 mg PO TID PRN PRN Reason: agitation Omeprazole (Omeprazole 40 Mg Capsule.Dr) 40 mg PO BID@0630,1630 [facility] Last Admin: 03/25/25 08:51 Dose: 40 mg Documented By: LAURIE Trazodone HCl (Trazodone Hcl 50 Mg Tablet) 50 mg PO BEDTIME MRX1 PRN PRN Reason: Insomnia Labs 03/25/25 10:17 Labs: Laboratory Results - last 24 hr 03/24/25 03/24/25 03/24/25 12:00 16:52 20:09 Anion Gap Estim Creat Clear Calc Estimated GFR POC Glucose 83 294 H 159 H Random Glucose Calcium 03/25/25 03/25/25 08:01 10:17 Anion Gap 14 Estim Creat Clear Calc 33.4 Estimated GFR 27 POC Glucose 189 H Random Glucose 152 H Calcium 9.1 Assessment and Plan (1) Chronic kidney disease: Status: Acute (2) Insulin dependent type 1 diabetes mellitus: Status: Acute (3) Heart murmur: Status: Acute (4) Coronary artery disease: Status: Acute Plan 59-year-old female with past medical history as listed below admitted to inpatient psych after intentionally injecting large amounts insulin in attempt to end her life. Acute on chronic stage IIIB kidney disease. Patient with a history of stage III B chronic kidney disease diagnosed January 2021 She is noted to have a creatinine of 1.23 in August 2024, September 2024 creatinine was elevated to 2.29, her furosemide was decreased to 40 mg daily at that time In December patient's creatinine was noted to be 1.48 which is her baseline according to her primary care notes. Likely due to type 1 diabetes, previously on lithium as well. Type 1 diabetes with neuropathy Continue Lantus 30 units. Preprandial lispro 5 units t.i.d. with meals as well as sliding scale Not a candidate for SGLT2 due to being type 1 diabetic Patient also with a history of gastroparesis so not a candidate for a GLP 1. Recent A1c 7.1 Continue gabapentin Coronary artery disease/CHF/HTN Continue Coreg, atorvastatin, Imdur Lasix is on hold currently Daily weights Valsartan DC'd. BP elevated. Will start amlodipine. Hypothyroidism Continue levothyroxine 125 daily Thank you for allowing me to participate in the care of this patient. Will follow with you, please notify medical provider with any changes in condition or concerns. Quality Stroke Does the patient have a stroke diagnosis?: No VTE Prior VTE?: No VTE Risk Level:: Medical - low VTE Device Contraindication: Treatment Not Indicated VTE Drug Contraindication: Treatment Not Indicated
[2025-03-25 12:13] LABS: Glucose, Whole Blood 97 mg/dL (60-115)
[2025-03-25 14:42] VITALS: BP 118/62
[2025-03-25 15:45] LABS: Glucose, Whole Blood 34 mg/dL (60-115)
[2025-03-25 16:24] LABS: Glucose, Whole Blood 184 mg/dL (60-115)
[2025-03-25 17:24] VITALS: BP 142/65; PULSE 64
--- NOTE | 2025-03-25 17:29 | PM.CNNEP ---
History of Present Illness Reason for Consult Consult date: 03/25/25 Reason for consult: TIANNA Chief Complaint Chief complaint: Suicide attempt History of Present Illness Narrative: Niurka is a 59 year old woman with Type 1 DM, retinopathy, CKD 3 as well as CAD was admitted to adult [facility] for Depression and SI. At presentation her serum creatinine has gone up to above 2.0. She denies CP, SOB, PND, orthopnea, nausea, vomiting or diarrhea. She has been on ARB and diuretics at presentation but denies taking NSAID's. She has no urinary symptoms and her urine output has been good. Nephrology has been consulted to assist in her clinical care for TIANNA on CKD. Review of Systems Review of Systems Yes all other systems are reviewed and are negative PMFSH Past Medical History Medical History (Updated 03/25/25 @ 17:34 by George Garcia MD) Rotator cuff arthropathy of right shoulder Vitamin D deficiency Retinopathy due to secondary diabetes mellitus, without macular edema, with mild nonproliferative retinopathy Chronic kidney disease, stage 3a Spinal stenosis Presence of stent in anterior descending branch of left coronary artery Parkinson disease Obstructive sleep apnea Irritable bowel syndrome Hypothyroid HTN (hypertension) Graves' disease GERD (gastroesophageal reflux disease) Gastroparesis due to DM Fibromyalgia, primary Insulin dependent type 1 diabetes mellitus Necrobiosis lipoidica diabeticorum Coronary artery disease Obesity Cataracts, bilateral Surgical History Surgical History (Updated 03/22/25 @ 04:06 by Jenny Smith RN) History of carpal tunnel surgery Hx of tubal ligation Hx of cholecystectomy Social History Social History Household Members: Children Household Members Other:: lives with son Housing: Unknown / Unable to assess Do you presently have visiting nurse or other home services: No Patient Tobacco Use Status: Former Tobacco user Tobacco use type: Cigarette Years Smoked: 27 Smoked in Last 30 Days: No e-Cigarette/Vaping Use: Never Used Patient Interested in Nicotine Replacement: No (n/a) Patient Given Instructions on How to Stop Smoking: No (n/a) Second Hand Smoke Exposure: No Currently Displaying Signs/Symptoms of Drug Intoxication Withdrawal: No Do you feel safe in your current relationship?: No Current Relationship Spiritual Healthcare Practices: unknown at this time Hinduism Healthcare Practices: unknown at this time Cultural Healthcare Practices: unknown at this time Advance Directives: No Advance Directives Information Provided: No Do you have thoughts of harming others: None Do you have a plan to hurt others: No Plan Recently lost weight without trying: No Nutrition Risks: No Nutritional Risk Patient : No : No Poor oral hygiene: No service: No Sexual orientation: Straight/Heterosexual Meds Allergies Allergy/AdvReac Type Severity Reaction Status Date / Time aripiprazole Allergy Unknown Verified 03/21/25 18:15 bacitracin Allergy Hives Verified 03/21/25 18:15 citalopram Allergy Unknown Verified 03/21/25 18:15 codeine Allergy Itching Verified 03/21/25 18:15 duloxetine Allergy Itching Verified 03/21/25 18:15 lithium Allergy Shakiness Verified 03/21/25 18:15 morphine Allergy Itching Verified 03/21/25 18:15 naltrexone Allergy Confusion Verified 03/21/25 18:15 neomycin Allergy Rash Verified 03/21/25 18:15 oxycodone (From Percocet) Allergy Itching Verified 03/21/25 18:15 perphenazine Allergy Unknown Verified 03/21/25 18:15 polymyxin B Allergy Hives Verified 03/21/25 18:15 quetiapine Allergy Unknown Verified 03/21/25 18:15 risperidone Allergy Unknown Verified 03/21/25 18:15 venlafaxine Allergy Shakiness Verified 03/21/25 18:15 Active Medications: Current Medications Acetaminophen (Acetaminophen 325 Mg Tablet) 650 mg PO Q6H PRN PRN Reason: Pain (Pain Scale 1-10) Last Admin: 03/25/25 05:53 Dose: 650 mg Al Hydroxide/Mg Hydroxide (Magnesium Hydrox/Alum Hydrox 30 Ml Oral.Susp) 30 ml PO Q6H PRN PRN Reason: Heartburn/Nausea Amlodipine Besylate (Amlodipine Besylate 5 Mg Tablet) 5 mg PO DAILY [facility]; Protocol Last Admin: 03/25/25 14:42 Dose: 5 mg Atorvastatin Calcium (Atorvastatin Calcium 80 Mg Tablet) 80 mg PO BEDTIME [facility] Last Admin: 03/24/25 20:34 Dose: 80 mg Bupropion HCl (Bupropion Hcl Xl 300 Mg Tab.Er.24h) 300 mg PO DAILY [facility] Last Admin: 03/25/25 08:51 Dose: 300 mg Carvedilol (Carvedilol 12.5 Mg Tablet) 12.5 mg PO BIDWM [facility]; Protocol Last Admin: 03/25/25 17:24 Dose: 12.5 mg Dextrose (Dextrose 50 % 25 Gm/50 Ml Syringe) 25 gm IVPUSH Q15M PRN; Protocol PRN Reason: per Hypoglycemia Standing Ord. Diazepam (Diazepam 5 Mg Tablet) 10 mg PO DAILY@1800 PRN PRN Reason: mod to severe Anxiety Last Admin: 03/23/25 21:10 Dose: 10 mg Diazepam (Diazepam 5 Mg Tablet) 5 mg PO DAILY PRN PRN Reason: Anxiety Last Admin: 03/25/25 08:59 Dose: 5 mg Escitalopram Oxalate (Escitalopram Oxalate 5 Mg Tablet) 15 mg PO DAILY [facility] Last Admin: 03/25/25 08:51 Dose: 15 mg Furosemide (Furosemide 40 Mg Tablet) 40 mg PO DAILY [facility]; Protocol On Hold: 03/23/25 10:18 Last Admin: 03/23/25 08:15 Dose: 40 mg Gabapentin (Gabapentin 300 Mg Capsule) 300 mg PO BID [facility] Last Admin: 03/25/25 08:51 Dose: 300 mg Glucose (Glucose Gel 15 Gm Gel..Gram.) 15 gm PO Q15M PRN; Protocol PRN Reason: per Hypoglycemia Standing Ord. Hydroxyzine HCl (Hydroxyzine Hcl 25 Mg Tablet) 25 mg PO Q6H PRN PRN Reason: mild anxiety Last Admin: 03/24/25 20:33 Dose: 25 mg Insulin Glargine (Insulin Glargine,Hum.Rec.Anlog 100 Unit/Ml 10 Ml Vial) 30 unit SUBCUT DAILY [facility] Last Admin: 03/25/25 08:52 Dose: 30 unit Insulin Human Lispro (Insulin Lispro 100 Unit/Ml 3 Ml Vial) 5 unit SUBCUT TIDWM [facility] Last Admin: 03/25/25 17:25 Dose: 5 unit Insulin Human Lispro (Insulin Lispro 100 Unit/Ml 3 Ml Vial) 0 unit SUBCUT TIDAC [facility]; Protocol Last Admin: 03/25/25 17:18 Dose: Not Given Isosorbide Mononitrate (Isosorbide Mononitrate 30 Mg Tab.Er.24h) 30 mg PO DAILY [facility]; Protocol Last Admin: 03/25/25 08:50 Dose: 30 mg Lamotrigine (Lamotrigine 100 Mg Tablet) 100 mg PO BID [facility] Last Admin: 03/25/25 08:51 Dose: 100 mg Lamotrigine (Lamotrigine 25 Mg Tablet) 25 mg PO DAILY [facility] Last Admin: 03/25/25 08:51 Dose: 25 mg Levothyroxine Sodium (Levothyroxine Sodium 125 Mcg Tablet) 125 mcg PO DAILY@0600 [facility] Last Admin: 03/25/25 05:48 Dose: 125 mcg Magnesium Hydroxide (Milk Of Magnesia 30 Ml Oral.Susp) 30 ml PO DAILY PRN PRN Reason: Constipation Last Admin: 03/25/25 09:00 Dose: 30 ml Nicotine (Nicotine 21 Mg Patch.Td24) 21 mg TRANSDERMA DAILY PRN PRN Reason: smoking cessation Nicotine Polacrilex (Nicotine Polacrilex 2 Mg Gum) 4 mg BUCCAL Q2H PRN PRN Reason: Nicotine Cravings Olanzapine (Olanzapine 5 Mg Tablet) 5 mg PO TID PRN PRN Reason: agitation Omeprazole (Omeprazole 40 Mg Capsule.Dr) 40 mg PO BID@0630,1630 [facility] Last Admin: 03/25/25 17:25 Dose: 40 mg Trazodone HCl (Trazodone Hcl 50 Mg Tablet) 50 mg PO BEDTIME MRX1 PRN PRN Reason: Insomnia Home Medications ?Medication ?Instructions ?Recorded ?Confirmed ?Last Taken ?Type atorvastatin 80 mg tablet 80 mg PO BEDTIME 03/21/25 03/21/25 Unknown History bupropion HCl 300 mg 24 hr tablet, 300 mg PO DAILY 03/21/25 03/21/25 Unknown History extended release carvedilol 12.5 mg tablet 12.5 mg PO BIDWMEAL 03/21/25 03/21/25 Unknown History diazepam 5 mg tablet 5 mg PO 1800 PRN Anxiety 03/21/25 03/21/25 Unknown History escitalopram oxalate 10 mg tablet 15 mg PO DAILY 03/21/25 03/21/25 Unknown History furosemide 40 mg tablet 40 mg PO BID 03/21/25 03/21/25 Unknown History gabapentin 300 mg capsule 300 mg PO TID 03/21/25 03/21/25 Unknown History insulin aspart U-100 100 unit/mL 03/21/25 Unknown History subcutaneous solution (Novolog U-100 Insulin aspart) irbesartan 300 mg tablet 300 mg PO DAILY 03/21/25 03/21/25 Unknown History isosorbide mononitrate 30 mg 30 mg PO DAILY 03/21/25 03/21/25 Unknown History tablet,extended release 24 hr lamotrigine 100 mg tablet 100 mg PO BID 03/21/25 03/21/25 Unknown History lamotrigine 25 mg tablet 25 mg PO BEDTIME 03/21/25 03/21/25 Unknown History levothyroxine 125 mcg tablet 125 mcg PO DAILY 03/21/25 03/21/25 Unknown History nitroglycerin 0.4 mg sublingual 0.4 mg sublingual PRN angina/chest 03/21/25 Unknown History tablet pain omeprazole 40 mg capsule,delayed 40 mg PO BID 03/21/25 03/21/25 Unknown History release Physical Exam Vital Signs: Last Vital Signs Temp 97.1 F 03/25/25 08:03 Pulse 64 03/25/25 17:24 Resp 16 03/25/25 08:03 BP 142/65 H 03/25/25 17:24 Pulse Ox 100 03/25/25 08:03 O2 Del Method Room Air 03/25/25 08:03 BMI result Body Mass Index 38.4 Const General: comfortable and no acute distress Orientation/consciousness: patient oriented x3 HEENT Head: Yes normocephalic Mouth: Normal oral and palatal mucosa present Eyes EOM: EOMs intact bilaterally Neck Neck: Yes supple Resp Auscultation: clear to auscultation bilaterally Cardio Jugular venous distension: no JVD Rate: regular rate GI Palpation (GI): Soft to palpation Auscultation: normal bowel sounds General: Yes no CVA tenderness Back/Spine/Pelvis Back: no CVA tenderness Skin General skin exam: no rashes or lesions noted Neuro General: patient oriented x3 and moves all extremities Extrem General: Yes no pedal edema Results Lab Results 03/25/25 10:17 Lab results: Chemistry 03/23/25 03/24/25 03/25/25 08:35 07:30 10:17 Sodium 134 L 136 138 Potassium 5.3 H 5.3 H 5.0 Carbon Dioxide 29 29 30 H BUN 46 H 45 H 41 H Creatinine 2.01 H 2.10 H 1.92 H Calcium 9.4 9.1 9.1 Assessment and Plan (1) Acute kidney injury superimposed on CKD: Status: Acute (2) HTN (hypertension): Qualifiers: Hypertension type: primary hypertension Qualified Code(s): I10 - Essential (primary) hypertension Status: Acute Plan Has baseline CKD 3 due to Diabetic renal disease( never had renal biopsy) Had been on ARB/Diuretics- most likely had altered autoregulation in the kidney causing tubular injury Urine output good. No reason to suspect obstructive uropathy/ GN/AIN ARB and Diuretics have been put on hold. Serum creatinine plateaued and better BP needs to be kept at goal. Added Amlodipine; No NSAID's When creatinine gets to baseline, shall continue to hold diuretics but could start lowest dose of ARB & D/C Amlodipine then No indication for renal replacement. C/W rest of current medical management for now Procedures Date of Service Date of Service: 03/25/25
--- NOTE | 2025-03-25 18:28 | PC.NURSE ---
Pt requested to have her blood glucose checked because she wasn't feeling right. Pts POC was 34. MD notified and pt was provided 2 juices and 3 sherberts per her request. POC taken approximately 25 minutes later at 184. Pt ate supper and denied any further negative symptoms. Pt received her scheduled 5 ux and the sliding schedule coverage was held per .
[2025-03-25 20:00] VITALS: BP 115/58; PULSE 58; RESP 18; TEMP 36.3; O2SAT 98
[2025-03-25 20:30] LABS: Glucose, Whole Blood 79 mg/dL (60-115)
--- NOTE | 2025-03-26 06:06 | PC.NURSE ---
03/26/25 pt requested to take omeprazole with 9 am medications
[2025-03-26 07:40] LABS: Glucose, Whole Blood 124 mg/dL (60-115)
[2025-03-26 07:55] VITALS: BP 176/77; PULSE 65; RESP 20; TEMP 36.3; O2SAT 97
[2025-03-26] MEDS: buPROPion HCl XL 300 MG TAB.ER.24H PO (08:45)
[2025-03-26] MEDS: Insulin Glargine,Hum.rec.anlog 100 UNIT/ML 10 ML VIAL 30 UNIT SUBCUT (08:48)
--- NOTE | 2025-03-26 09:26 | P.PNNP_ITS ---
Subjective Subjective Date of Service: 03/26/25 Interval history: No new events, pending labs from today Physical Exam 2 Vital Signs: Vital Signs: Last Vital Signs Temp 97.3 F 03/26/25 07:55 Pulse 65 03/26/25 07:55 Resp 20 03/26/25 07:55 BP 176/77 H 03/26/25 07:55 Pulse Ox 97 03/26/25 07:55 O2 Del Method Room Air 03/26/25 07:55 BMI result Body Mass Index 38.4 General: Lady in no acute distress Nutritional Appearance: well nourished and overweight Eyes: appearance normal, both eyes and all related structures; Alignment and Position: alignment normal and position normal Neck: No lymphadenopathy, no thyromegaly Resp: bilateral air entry equal, occasional added sounds present Cardio: Regular rate, regular rhythm; Heart sounds: S1 normal heart sound present and S2 normal heart sound present GI: soft, nontender, no guarding, no hepatosplenomegaly : bladder normal to inspection, bladder normal to palpation, no renal angle tenderness Skin: no rashes or lesions noted and elasticity normal Neuro: oriented to person, oriented to place, oriented to time and moves all extremities Objective Data Labs 03/25/25 10:17 Labs: Laboratory Results - last 24 hr 03/25/25 03/25/25 03/25/25 10:17 12:09 15:39 Sodium 138 Potassium 5.0 Chloride 99 Carbon Dioxide 30 H Anion Gap 14 BUN 41 H Creatinine 1.92 H Estim Creat Clear Calc 33.4 Estimated GFR 27 POC Glucose 97 34 L* Random Glucose 152 H Calcium 9.1 03/25/25 03/25/25 03/26/25 16:20 20:26 07:31 Sodium Potassium Chloride Carbon Dioxide Anion Gap BUN Creatinine Estim Creat Clear Calc Estimated GFR POC Glucose 184 H 79 124 H Random Glucose Calcium Procedures Date of Service Date of Service: 03/26/25 Assessment & Plan Assessment and plan (1) Bipolar 2 disorder: Status: Acute (2) HTN (hypertension): Status: Acute (3) Coronary artery disease: Status: Acute (4) Insulin dependent type 1 diabetes mellitus: Status: Acute (5) Acute kidney injury superimposed on CKD: Status: Acute Plan Acute on chronic kidney disease: Has diabetic kidney disease with unknown baseline, AKA start to be secondary to altered autoregulation of renal blood flow. Continue holding DEEPA/ARB, continue holding Lasix until creatinine the chest to baseline. Will get urinalysis, urine microalbumin creatinine ratio Avoid nephrotoxic agents, closely monitor I's and o's Hypertension: Blood pressure remains on the higher side Change amlodipine to 10 mg in a.m., can also increase carvedilol to 5 mg b.i.d. if the blood pressure remains on the high side. Time Spent With Patient Time: Total time managing care of this patient today ____ minutes. Progress Note: Quality Stroke Does the patient have a stroke diagnosis?: No
[2025-03-26 12:05] LABS: Glucose, Whole Blood 51 mg/dL (60-115)
[2025-03-26 16:39] LABS: Glucose, Whole Blood 445 mg/dL (60-115)
[2025-03-26 17:12] VITALS: BP 148/68; PULSE 68
[2025-03-26 19:24] LABS: Glucose, Whole Blood 342 mg/dL (60-115)
--- NOTE | 2025-03-26 19:37 | P.PNPSI_ITS ---
Subjective Subjective Date of Service: 03/26/25 Reason For Visit: Suicide attempt Subjective Notes: 3 Day Interim History: Chart reviewed, case discussed in tx team Pt is feeling better overall. Does still want to be d/c'd home tomorrow. Denies SI. While she doesn't feel like she has much to look forward to, she does look forward to seeing her son, who lives w/ her. She plans to speak w/ her therapist more about setting appropriate boundaries w/ her dtr in regards to her desire for pt to watch her grandchildren and take them on/off the bus, which was too ovewhelming for pt. Pt reports that she slept okay. Appetite stable Denies med SE Medication Compliance: Yes Mental Status Exam Mental Status Exam Narrative: Appearance: Casually dressed. Grooming/hygiene wnl. Good eye contact Attitude:Cooperative Speech: Fluent and wnl in regard to volume, tone, prosody Motor activity: Calm and without any tics, tremors or dyskinesias. Steady gait Mood: better Affect: appropriate, reactive, brightens up appropriately Thought process: goal directed and without evidence of formal thought disorder Thought content: as noted above. Denies SI Perception: does not appear to respond to internal stimuli Alert/oriented in all spheres Cognition grossly intact Insight: intact Judgment: fair Diagnostics Vital Signs (24Hr): Vital Signs - 24 hr 03/25/25 20:00 03/26/25 07:55 03/26/25 17:12 Temperature 97.4 F 97.3 F Pulse Rate 58 65 68 Respiratory Rate 18 20 Blood Pressure 115/58 L 176/77 H 148/68 H Pulse Oximetry 98 97 Oxygen Delivery Method Room Air Room Air BMI result Body Mass Index 38.4 Labs 03/25/25 10:17 Labs: Laboratory Results - last 48 hr 03/24/25 03/25/25 03/25/25 20:09 08:01 10:17 Sodium 138 Potassium 5.0 Chloride 99 Carbon Dioxide 30 H Anion Gap 14 BUN 41 H Creatinine 1.92 H Estim Creat Clear Calc 33.4 Estimated GFR 27 POC Glucose 159 H 189 H Random Glucose 152 H Calcium 9.1 03/25/25 03/25/25 03/25/25 12:09 15:39 16:20 Sodium Potassium Chloride Carbon Dioxide Anion Gap BUN Creatinine Estim Creat Clear Calc Estimated GFR POC Glucose 97 34 L* 184 H Random Glucose Calcium 03/25/25 03/26/25 03/26/25 20:26 07:31 12:01 Sodium Potassium Chloride Carbon Dioxide Anion Gap BUN Creatinine Estim Creat Clear Calc Estimated GFR POC Glucose 79 124 H 51 L* Random Glucose Calcium 03/26/25 03/26/25 16:32 19:18 Sodium Potassium Chloride Carbon Dioxide Anion Gap BUN Creatinine Estim Creat Clear Calc Estimated GFR POC Glucose 445 H* 342 H Random Glucose Calcium Medications Medications Current Medications Acetaminophen (Acetaminophen 325 Mg Tablet) 650 mg PO Q6H PRN PRN Reason: Pain (Pain Scale 1-10) Last Admin: 03/25/25 05:53 Dose: 650 mg Al Hydroxide/Mg Hydroxide (Magnesium Hydrox/Alum Hydrox 30 Ml Oral.Susp) 30 ml PO Q6H PRN PRN Reason: Heartburn/Nausea Amlodipine Besylate (Amlodipine Besylate 10 Mg Tablet) 10 mg PO DAILY [facility]; Protocol Atorvastatin Calcium (Atorvastatin Calcium 80 Mg Tablet) 80 mg PO BEDTIME [facility] Last Admin: 03/25/25 20:34 Dose: 80 mg Bupropion HCl (Bupropion Hcl Xl 300 Mg Tab.Er.24h) 300 mg PO DAILY [facility] Last Admin: 03/26/25 08:45 Dose: 300 mg Carvedilol (Carvedilol 12.5 Mg Tablet) 12.5 mg PO BIDWM [facility]; Protocol Last Admin: 03/26/25 17:12 Dose: 12.5 mg Dextrose (Dextrose 50 % 25 Gm/50 Ml Syringe) 25 gm IVPUSH Q15M PRN; Protocol PRN Reason: per Hypoglycemia Standing Ord. Diazepam (Diazepam 5 Mg Tablet) 10 mg PO DAILY@1800 PRN PRN Reason: mod to severe Anxiety Last Admin: 03/25/25 20:35 Dose: 10 mg Diazepam (Diazepam 5 Mg Tablet) 5 mg PO DAILY PRN PRN Reason: Anxiety Last Admin: 03/26/25 09:21 Dose: 5 mg Escitalopram Oxalate (Escitalopram Oxalate 5 Mg Tablet) 15 mg PO DAILY [facility] Last Admin: 03/26/25 08:44 Dose: 15 mg Furosemide (Furosemide 40 Mg Tablet) 40 mg PO DAILY [facility]; Protocol On Hold: 03/23/25 10:18 Last Admin: 03/23/25 08:15 Dose: 40 mg Gabapentin (Gabapentin 300 Mg Capsule) 300 mg PO BID [facility] Last Admin: 03/26/25 08:45 Dose: 300 mg Glucose (Glucose Gel 15 Gm Gel..Gram.) 15 gm PO Q15M PRN; Protocol PRN Reason: per Hypoglycemia Standing Ord. Hydroxyzine HCl (Hydroxyzine Hcl 25 Mg Tablet) 25 mg PO Q6H PRN PRN Reason: mild anxiety Last Admin: 03/24/25 20:33 Dose: 25 mg Insulin Glargine (Insulin Glargine,Hum.Rec.Anlog 100 Unit/Ml 10 Ml Vial) 30 unit SUBCUT DAILY [facility] Last Admin: 03/26/25 08:48 Dose: 30 unit Insulin Human Lispro (Insulin Lispro 100 Unit/Ml 3 Ml Vial) 5 unit SUBCUT TIDWM [facility] On Hold: 03/26/25 18:59 Last Admin: 03/26/25 17:13 Dose: 5 unit Insulin Human Lispro (Insulin Lispro 100 Unit/Ml 3 Ml Vial) 0 unit SUBCUT TIDAC [facility]; Protocol Last Admin: 03/26/25 17:14 Dose: 10 unit Isosorbide Mononitrate (Isosorbide Mononitrate 30 Mg Tab.Er.24h) 30 mg PO DAILY [facility]; Protocol Last Admin: 03/26/25 08:45 Dose: 30 mg Lamotrigine (Lamotrigine 100 Mg Tablet) 100 mg PO BID [facility] Last Admin: 03/26/25 08:46 Dose: 100 mg Lamotrigine (Lamotrigine 25 Mg Tablet) 25 mg PO DAILY [facility] Last Admin: 03/26/25 08:46 Dose: 25 mg Levothyroxine Sodium (Levothyroxine Sodium 125 Mcg Tablet) 125 mcg PO DAILY@0600 [facility] Last Admin: 03/26/25 06:01 Dose: 125 mcg Magnesium Hydroxide (Milk Of Magnesia 30 Ml Oral.Susp) 30 ml PO DAILY PRN PRN Reason: Constipation Last Admin: 03/25/25 09:00 Dose: 30 ml Nicotine (Nicotine 21 Mg Patch.Td24) 21 mg TRANSDERMA DAILY PRN PRN Reason: smoking cessation Nicotine Polacrilex (Nicotine Polacrilex 2 Mg Gum) 4 mg BUCCAL Q2H PRN PRN Reason: Nicotine Cravings Olanzapine (Olanzapine 5 Mg Tablet) 5 mg PO TID PRN PRN Reason: agitation Omeprazole (Omeprazole 40 Mg Capsule.Dr) 40 mg PO BID@0630,1630 [facility] Last Admin: 03/26/25 17:12 Dose: 40 mg Trazodone HCl (Trazodone Hcl 50 Mg Tablet) 50 mg PO BEDTIME MRX1 PRN PRN Reason: Insomnia Allergies Allergies Allergy/AdvReac Type Severity Reaction Status Date / Time aripiprazole Allergy Unknown Verified 03/21/25 18:15 bacitracin Allergy Hives Verified 03/21/25 18:15 citalopram Allergy Unknown Verified 03/21/25 18:15 codeine Allergy Itching Verified 03/21/25 18:15 duloxetine Allergy Itching Verified 03/21/25 18:15 lithium Allergy Shakiness Verified 03/21/25 18:15 morphine Allergy Itching Verified 03/21/25 18:15 naltrexone Allergy Confusion Verified 03/21/25 18:15 neomycin Allergy Rash Verified 03/21/25 18:15 oxycodone (From Percocet) Allergy Itching Verified 03/21/25 18:15 perphenazine Allergy Unknown Verified 03/21/25 18:15 polymyxin B Allergy Hives Verified 03/21/25 18:15 quetiapine Allergy Unknown Verified 03/21/25 18:15 risperidone Allergy Unknown Verified 03/21/25 18:15 venlafaxine Allergy Shakiness Verified 03/21/25 18:15 Assessment & Plan Assessment & Plan (1) Bipolar 2 disorder: Status: Acute Code(s): F31.81 - Bipolar II disorder (2) HTN (hypertension): Qualifiers: Hypertension type: primary hypertension Qualified Code(s): I10 - Essential (primary) hypertension Status: Acute Code(s): I10 - Essential (primary) hypertension (3) Coronary artery disease: Status: Acute Code(s): I25.10 - Atherosclerotic heart disease of [place] coronary artery without angina pectoris (4) Insulin dependent type 1 diabetes mellitus: Status: Acute Code(s): E10.9 - Type 1 diabetes mellitus without complications (5) Acute kidney injury superimposed on CKD: Status: Acute Code(s): N17.9 - Acute kidney failure, unspecified; N18.9 - Chronic kidney disease, unspecified Plan Legal status- 3-day Continue milieu therapy, home medications 03/23: Continue current regimen and plans 03/24: Continue current regimen and plans. Review new labs when available 03/25: Continue current tx plan. 3-day expires 03/27. 03/26: Stable, denies SI. D/C tomorrow Patient educated on: medication risk/benefits and therapeutic strategies Reason for continued inpatient stay Substantial Risk for: med/psych decompensation Time Spent With Patient Time: Total time managing care of this patient today _30___ minutes.
[2025-03-26 20:00] VITALS: BP 125/58; PULSE 70; RESP 18; TEMP 36.6; O2SAT 99
[2025-03-26 21:13] LABS: Glucose, Whole Blood 226 mg/dL (60-115)
[2025-03-27 03:05] LABS: Glucose, Whole Blood 132 mg/dL (60-115)
--- NOTE | 2025-03-27 05:23 | PC.NURSE ---
pt requested to take omeprazole with 9 am medications on 03/27
[2025-03-27 06:00] VITALS: BMI 39.1
[2025-03-27 07:50] LABS: Glucose, Whole Blood 183 mg/dL (60-115)
[2025-03-27 07:53] VITALS: BP 152/72; PULSE 71; RESP 16; TEMP 36.4; O2SAT 99
[2025-03-27 08:04] VITALS: BP 152/72; PULSE 71; RESP 16; TEMP 36.4; O2SAT 99
[2025-03-27] MEDS: buPROPion HCl XL 300 MG TAB.ER.24H PO (08:12)
[2025-03-27] MEDS: Insulin Glargine,Hum.rec.anlog 100 UNIT/ML 10 ML VIAL 30 UNIT SUBCUT (08:12)
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
[2025-03-27 10:52] LABS: Glucose, Whole Blood 268 mg/dL (60-115)
== END 2025-03-27 11:40 | disposition home or self-care (01) | DRG 753 ==
PROVIDERS: Nurse Practitioner Acute Care; Absent Provider Psychiatry & Neurology Psychiatry; Admitting Provider Psychiatry & Neurology Psychiatry; PCP Internal Medicine; Visit Provider Psychiatry & Neurology Psychiatry
DX: F31.81 Bipolar II disorder (principal); E10.649 Type 1 diabetes mellitus with hypoglycemia without coma; N17.9 Acute kidney failure, unspecified; E10.22 Type 1 diabetes mellitus with diabetic chronic kidney disease; E10.43 Type 1 diabetes mellitus with diabetic autonomic (poly)neuropathy; K31.84 Gastroparesis; I12.9 Hypertensive chronic kidney disease with stage 1 through stage 4 chronic kidney disease, or unspecified chronic kidney disease; E10.65 Type 1 diabetes mellitus with hyperglycemia; K58.2 Mixed irritable bowel syndrome; I25.10 Atherosclerotic heart disease of native coronary artery without angina pectoris; N18.32 Chronic kidney disease, stage 3b; E87.6 Hypokalemia; Z87.891 Personal history of nicotine dependence; Z62.810 Personal history of physical and sexual abuse in childhood; Z91.51 Personal history of suicidal behavior; Z91.52 Personal history of nonsuicidal self-harm; Z63.4 Disappearance and death of family member; Z79.4 Long term (current) use of insulin; Z79.890 Hormone replacement therapy; Z79.899 Other long term (current) drug therapy
CPT/HCPCS: 36415; 76775; 80048; 80053; 80061; 82947; 83036; 84443

== ENCOUNTER 2025-03-21 17:41 | Outpatient (BNV) | payer BC, MEDICARE, MEDICAID, SELFPAY | END 2025-03-24 10:16 | PROVIDERS: Absent Provider Psychiatry & Neurology Psychiatry; Admitting Provider Psychiatry & Neurology Psychiatry; PCP Internal Medicine; Visit Provider Family Medicine | DX: N18.30 Chronic kidney disease, stage 3 unspecified (principal); R74.8 Abnormal levels of other serum enzymes | CPT/HCPCS: 76775 ==

== ENCOUNTER → 2025-03-21 17:41 | Outpatient (BNV) | payer BC, MEDICARE, MEDICAID, SELFPAY | PROVIDERS: Absent Provider Psychiatry & Neurology Psychiatry; Admitting Provider Psychiatry & Neurology Psychiatry; PCP Internal Medicine; Visit Provider Internal Medicine Nephrology | DX: N17.9 Acute kidney failure, unspecified (principal); I12.9 Hypertensive chronic kidney disease with stage 1 through stage 4 chronic kidney disease, or unspecified chronic kidney disease; N18.9 Chronic kidney disease, unspecified | CPT/HCPCS: 99255 ==

== ENCOUNTER → 2025-03-21 17:41 | Outpatient (BNV) | payer BC, MEDICARE, MEDICAID, SELFPAY | PROVIDERS: Absent Provider Psychiatry & Neurology Psychiatry; Admitting Provider Psychiatry & Neurology Psychiatry; PCP Internal Medicine; Visit Provider Nurse Practitioner Acute Care | DX: N18.9 Chronic kidney disease, unspecified (principal); E10.9 Type 1 diabetes mellitus without complications; R01.1 Cardiac murmur, unspecified; I25.10 Atherosclerotic heart disease of native coronary artery without angina pectoris | CPT/HCPCS: 99231; 99499 ==

== ENCOUNTER → 2025-03-21 17:41 | Outpatient (BNV) | payer BC, MEDICARE, MEDICAID, SELFPAY | PROVIDERS: Absent Provider Psychiatry & Neurology Psychiatry; Admitting Provider Psychiatry & Neurology Psychiatry; PCP Internal Medicine; Visit Provider Internal Medicine Critical Care Medicine | DX: F31.81 Bipolar II disorder (principal); I12.9 Hypertensive chronic kidney disease with stage 1 through stage 4 chronic kidney disease, or unspecified chronic kidney disease; I25.10 Atherosclerotic heart disease of native coronary artery without angina pectoris; E10.9 Type 1 diabetes mellitus without complications; N17.9 Acute kidney failure, unspecified; N18.9 Chronic kidney disease, unspecified | CPT/HCPCS: 99232 ==

== ENCOUNTER → 2025-03-21 17:41 | Outpatient (BNV) | payer BC, MEDICARE, MEDICAID, SELFPAY | PROVIDERS: Absent Provider Psychiatry & Neurology Psychiatry; Admitting Provider Psychiatry & Neurology Psychiatry; PCP Internal Medicine; Visit Provider Psychiatry & Neurology Psychiatry | DX: F31.81 Bipolar II disorder (principal) | CPT/HCPCS: 90792 ==